=== PATIENT | female | born 1995 | race Asian ===

== ENCOUNTER 2023-12-07 10:15 | Emergency (ER) | payer BC ==
[~2023-12-07] VITALS: Ht 157.5 cm; Wt 50.0 kg
[2023-12-07 10:26] VITALS: TEMP 98.3
[2023-12-07 11:10] LABS: COLLECTION METHOD CLEAN CATCH
[2023-12-07 11:14] LABS: PH 6.5 (5.0-8.5); URINE APPEARANCE CLEAR (CLEAR/HAZY); URINE BLOOD NEGATIVE (NEGATIVE); URINE COLOR YELLOW (YELLOW); URINE GLUCOSE NEGATIVE (NEGATIVE); URINE KETONE NEGATIVE (NEGATIVE); URINE NITRATE NEGATIVE (NEGATIVE); URINE PROTEIN(semi-quant) NEGATIVE (NEGATIVE); URINE UROBILINOGEN 0.2 E.U/dL (0.2-1.0)
[2023-12-07] MEDS ORDERED: FLAGYL 375375 MG PO (12:34)
[2023-12-07 12:48] VITALS: BP 103/73; PULSE 81
== END 2023-12-07 12:48 | disposition home or self-care (01) ==
LOC: COL.ER 10:15
PROVIDERS: Family Medicine
DX: N76.0 Acute vaginitis (principal)